=== PATIENT | male | born 1980 | race Hispanic/Latino ===

== ENCOUNTER 2018-10-19 01:30 | Emergency (ER) | payer BC ==
[~2018-10-19] VITALS: Ht 165.1 cm; Wt 72.6 kg
--- NOTE | 2018-10-19 02:14 | Diagnostic Imaging Report ---
EXAMINATION: RIBS UNILAT W/CXR- HOPD INDICATION: Left-sided rib pain. COMPARISON: None FINDINGS: TUBES and LINES: None. LUNGS: Lungs are well inflated. Lungs are clear. There is no evidence of pneumonia or pulmonary edema. PLEURA: No pleural effusion or pneumothorax. HEART AND MEDIASTINUM: The cardiomediastinal silhouette is unremarkable. BONES AND SOFT TISSUES: No acute osseous lesion. Soft tissues are unremarkable. UPPER ABDOMEN: No free air under the diaphragm. IMPRESSION: No acute thoracic abnormality. Signed by: DR. Akhil Banegas MD on 10/19/2018 2:10 AM
== END 2018-10-19 02:33 | disposition home or self-care (01) ==
LOC: ER 01:30 → FSED 02:33
DX: S22.32XA Fracture of one rib, left side, initial encounter for closed fracture (principal); Y93.83 Activity, rough housing and horseplay; Y92.008 Other place in unspecified non-institutional (private) residence as the place of occurrence of the external cause
CPT/HCPCS: 71101; 99283